=== PATIENT | male | born 1985 | race Caucasian/White ===

== ENCOUNTER 2018-09-11 10:38 | Emergency (ER) | payer MEDICAID, SELFPAY ==
[~2018-09-11] VITALS: Ht 185.4 cm; Wt 75.0 kg
[2018-09-11] MEDS ORDERED: IBUP80TA PO (10:42)
--- NOTE | 2018-09-11 11:37 | REP ---
RIGHT KNEE, FOUR VIEWS: HISTORY: Fall. There is no acute fracture or dislocation. The joint spaces are normal in appearance. IMPRESSION: There is no acute fracture or dislocation. Electronically Signed by Ti Giraldo MD 09/11/2018 11:41 A
[2018-09-11] MEDS ORDERED: NORCOTAB PO (11:48)
[2018-09-11] MEDS ORDERED: NORCO, ANEXSIA 5/325MG TABLET (HYDROcodone/ACETAMINOPHEN) PO ONE (12:00)
[2018-09-11 12:05] VITALS: BP 132/75
== END 2018-09-11 12:07 | disposition home or self-care (01) ==
LOC: M ED 10:38
DX: S89.91XA Unspecified injury of right lower leg, initial encounter (principal); W00.0XXA Fall on same level due to ice and snow, initial encounter; Y92.89 Other specified places as the place of occurrence of the external cause; Y99.0 Civilian activity done for income or pay; F17.210 Nicotine dependence, cigarettes, uncomplicated

== ENCOUNTER 2018-09-15 12:46 | Emergency (ER) | payer MEDICAID, SELFPAY ==
[~2018-09-15] VITALS: Ht 185.4 cm; Wt 75.0 kg
[~2018-09-15 12:46] MED LIST: IBUP80TA PO; NORCOTAB PO
[2018-09-15 15:46] VITALS: BP 125/70
== END 2018-09-15 15:50 | disposition home or self-care (01) ==
LOC: M ED 12:46
DX: S89.91XA Unspecified injury of right lower leg, initial encounter (principal); V83.4XXA Person injured while boarding or alighting from special industrial vehicle, initial encounter; Y92.89 Other specified places as the place of occurrence of the external cause; Y99.0 Civilian activity done for income or pay; F17.210 Nicotine dependence, cigarettes, uncomplicated

== ENCOUNTER 2018-09-20 11:32 | Emergency (ER) | payer MEDICAID ==
[~2018-09-20] VITALS: Ht 185.4 cm; Wt 77.3 kg
[2018-09-20] MEDS ORDERED: TRAM50TA2 PO (12:30)
[2018-09-20] MEDS ORDERED: traMADol 50 MG TAB PO ONE (12:30)
[2018-09-20 12:41] VITALS: BP 125/74
== END 2018-09-20 12:43 | disposition home or self-care (01) ==
LOC: M ED 11:32
DX: M25.561 Pain in right knee (principal)

== ENCOUNTER 2019-05-16 06:59 | Observation (INO) | payer MEDICAID ==
[~2019-05-16] VITALS: Ht 182.9 cm; Wt 75.2 kg
[~2019-05-16 06:59] MED LIST changes: +HYDR-3715 PO; -NORCOTAB PO; +TRAM50TA2 PO
[2019-05-16] MEDS ORDERED: ADENOSINE 6MG/2ML INJECTION (J0153) ONE (07:01)
[2019-05-16] MEDS ORDERED: ADENOSINE 6MG/2ML INJECTION (J0153) IV STA ×3 (07:20→08:24)
[2019-05-16] MEDS ORDERED: NS 1,000 ML IV ONE (07:30)
[2019-05-16 07:43] LABS: BASO # 0.1 10^3/uL (0.0-0.2); BASO % 0.6 % (0.0-1.0); EOS # 0.1 10^3/uL (0.0-0.5); EOS % 0.6 % (0.0-3.0); HEMATOCRIT 40.6 % (42.0-52.0); HEMOGLOBIN 13.6 g/dl (13.5-17.5); LYMPH # 1.2 10^3/uL (1.5-5.0); LYMPH % 11.9 % (24.0-44.0); MEAN CORPUSCULAR HEMOGLOBIN 31.3 pg (27.0-33.0); MEAN CORPUSCULAR HGB CONC 33.5 g/dl (32.0-36.5); MEAN CORPUSCULAR VOLUME 93.5 fl (80.0-96.0); MONO # 0.7 10^3/uL (0.0-0.8); NEUTROPHILS # 7.8 10^3/uL (1.5-8.5); NEUTROPHILS % 79.6 % (36.0-66.0); PLATELET COUNT, AUTOMATED 262 10^3/uL (150-450); RED BLOOD COUNT 4.34 10^6/uL (4.30-6.10); WHITE BLOOD COUNT 9.7 10^3/uL (4.0-10.0)
[2019-05-16 07:59] LABS: INR 1.09; PROTHROMBIN TIME 13.8 SECONDS (11.8-14.0)
[2019-05-16 08:08] LABS: ALBUMIN 3.8 GM/DL (3.2-5.2); ALT/SGPT 17 U/L (12-78); BILIRUBIN,DIRECT 0.1 MG/DL (0.0-0.2); BILIRUBIN,TOTAL 0.3 MG/DL (0.2-1.0); BLOOD UREA NITROGEN 17 MG/DL (7-18); C REACTIVE PROTEIN QUANTITATIV 0.77 MG/DL (0.00-0.30); CALCIUM LEVEL 8.9 MG/DL (8.5-10.1); CARBON DIOXIDE LEVEL 29 MEQ/L (21-32); CHLORIDE LEVEL 104 MEQ/L (98-107); CK-MB VALUE MASS < 1.0 NG/ML (<3.6); CPK CREATINE PHOSPHOKINASE 77 U/L (39-308); CREATININE FOR GFR 1.04 MG/DL (0.70-1.30); GLOMERULAR FILTRATION RATE > 60.0 (>60); GLUCOSE, FASTING 102 MG/DL (70-100); LIPASE 116 U/L (73-393); NT-PRO BNP 22 PG/ML (<125); POTASSIUM SERUM 4.1 MEQ/L (3.5-5.1); SODIUM LEVEL 140 MEQ/L (136-145); TOTAL PROTEIN 7.2 GM/DL (6.4-8.2); TROPONIN I < 0.02 NG/ML (< 0.10)
[2019-05-16 08:22] LABS: ERYTHROCYTE SEDIMENTATION RATE 21 mm/hr (0-15)
[2019-05-16] MEDS ORDERED: BUPRENORPHINE/NALOXONE 2-0.5MG SUBLINGUAL TABLET(SUBOXONE) SL SCH (09:00)
--- NOTE | 2019-05-16 09:17 | REP ---
CHEST, SINGLE VIEW: There is no evidence of acute infiltrate. No pleural effusion is seen. The heart is normal in size. The mediastinal silhouette is unremarkable. The visualized osseous structures are intact. IMPRESSION: No acute pulmonary disease. Electronically Signed by Karl May MD 05/16/2019 05:56 P
--- NOTE | 2019-05-16 09:48 | REP ---
Right lower extremity Duplex Doppler venous ultrasound: Real time compression and duplex Doppler interrogation of the right lower extremity deep venous system is performed. The right common femoral, superficial femoral and popliteal veins are fully compressible with transducer pressure and demonstrate normal spontaneous and phasic flow, without evidence of deep venous thrombosis. Impression: No evidence of deep venous thrombosis of the right lower extremity femoral popliteal venous system. Electronically Signed by Karl May MD 05/16/2019 09:40 A
[2019-05-16] MEDS ORDERED: VANCOMYCIN HCL 1,000 MG, VIAL MATE ADAPTER 1 EACH in D5W 250 ML IV ONE (12:00)
[2019-05-16] MEDS ORDERED: MAALOX 30 ML SUSP *UDC PO PRN (12:30)
[2019-05-16] MEDS ORDERED: ACETAMINOPHEN TAB 650MG DOSE (2X325MG) PO PRN (12:30)
[2019-05-16] MEDS ORDERED: SUBO2MIS SL (12:52)
[2019-05-16] MEDS ORDERED: FLUC200T2 PO (12:52)
[2019-05-16] MEDS ORDERED: ADDE20TA PO (12:52)
--- NOTE | 2019-05-16 13:36 | ECGEPIP ---
[facility] - ED Test Date: 2019-05-16 Pat Name: JEFF PAEZ Department: Room: - Gender: Male Joint Terminal Attack Controller: PMO : 1985 Requested By: Yareli Lloyd Order Number: [id number] Reading MD: Yareli Lloyd Measurements Intervals [place] Rate: 103 P: CO: 0 QRS: 72 QRSD: 101 T: 65 QT: 339 QTc: 445 Interpretive Statements SINUS TACHYCARDIA INCOMPLETE RIGHT BUNDLE BRANCH BLOCK ABNORMAL RHYTHM ECG NO PRIOR Electronically Signed on 05-16-2019 13:36:07 EDT by Yareli Lloyd
--- NOTE | 2019-05-16 13:43 | PHACANCOPD ---
PHARMACY VANCOMYCIN DOSING Pt Demographics Demographics Patient Age:33 , Weight:75.000 , Gender: male Adjusted Body Weight Date: 05/16/19, Adjusted Body Weight: Kg Events Past 24 Hours Events Past 24 Hours: NO: Dialysis, Diuretic Therapy, Change in CrCl, Fever, Elevation in WBC, Pending Diagnostics, Pending Procedures, Other Vancomycin Vancomycin indication: SKIN AND SOFT TISSUE INFECTION Vancomycin Target Ranges: 10-20 mcg/ml Vancomycin Load Y/N: Yes Load Dose Date Time Vancomycin Load Dose: 1500MG Date: 05/16/19 Time: 1300 Vancomycin Dose Date: 05/16/19. Current Vancomycin Dose: [1 GRAM EVERY 8 HOURS] Intermittent Dosing?: No Labs Labs Vital Signs Label Value Date Time Blood Pressure Assessment 95/62 (73) 05/16/19 0715 Source Automatic Cuff (NIBP) Blood Pressure Assessment 109/78 (88) 05/16/19 0731 Source Automatic Cuff (NIBP) Blood Pressure Assessment 120/79 (93) 05/16/19 0745 Source Automatic Cuff (NIBP) Blood Pressure Assessment 109/67 (81) 05/16/19 0801 Source Automatic Cuff (NIBP) Blood Pressure Assessment 106/67 (80) 05/16/19 0803 Source Automatic Cuff (NIBP) Blood Pressure Assessment 112/70 (84) 05/16/19 0806 Source Automatic Cuff (NIBP) Blood Pressure Assessment 109/71 (84) 05/16/19 0809 Source Automatic Cuff (NIBP) Blood Pressure Assessment 70/47 (55) 05/16/19 0812 Source Automatic Cuff (NIBP) Blood Pressure Assessment 103/58 (73) 05/16/19 0814 Source Automatic Cuff (NIBP) Blood Pressure Assessment 110/71 (84) 05/16/19 1200 Source Automatic Cuff (NIBP) Blood Pressure Assessment 105/62 (76) 05/16/19 1230 Source Automatic Cuff (NIBP) Item Value Date Time White Blood Count 9.7 10^3/uL 05/16/19 0727 Erythrocyte Sedimentation Rate 21 mm/hr H 05/16/19 0727 Creatinine 1.04 MG/DL 05/16/19 0727 Glomerular Filtration Rate > 60.0 05/16/19 0727 C-Reactive Protein, Quantitative 0.77 MG/DL H 05/16/19 0727 Micro Microbiology 05/16/19 Blood Culture, Received Pending 05/16/19 Blood Culture, Received Pending Creatinine Clearance Date:05/16/19. Creatinine Clearance: [108.8 mL/MIN]. Assessment and Plan Maintaining Current Dose?: Yes Reason for dose change: No Dose Change Pharmacist Note Pharmacist Note Date: 05/16/19. Pharmacist note: Patient presented to [facility] due to leg pain. Patient was initiated on vancomycin for skin and soft tissue infection. 1 gram of vancomycin was given in the emergency department with an additional 500mg orders to complete a 1500mg loading dose. A maintenance dosing of 1 gram of vancomycin every 8 hours was ordered, with a trough to determine steady state scheduled for 1300 on 05/17/19. We will continue to monitor and make adjustments as needed. JANETH DUNCAN [facility] May 16, 2019 13:43
[2019-05-16] MEDS ORDERED: VANCOMYCIN HCL 500 MG in D5W MINI-BAG PLUS 100 ML IV ONE (14:00)
[2019-05-16] MEDS ORDERED: ADDERALL 5 MG TAB PO SCH (14:00)
[2019-05-16 14:59] VITALS: BP 125/76
[2019-05-16] MEDS ORDERED: BACT800T5 PO (16:43)
[2019-05-16] MEDS ORDERED: DOXY-350 PO (16:43)
--- NOTE | 2019-05-16 18:57 | HPE ---
DATE OF ADMISSION: 05/16/2019 CHIEF COMPLAINT: Right lower extremity redness and pain. HISTORY OF PRESENT ILLNESS: Mr. 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 He has not used in multiple years. He is currently on Suboxone therapy. Also, has a history of supraventricular tachycardia (SVT) and attention deficit hyperactive disorder (ADHD). The patient was in his usual state of health up until 2 weeks ago when he noticed increased redness and pain involving his right lateral lower extremity at the site of one of his previous leishmaniasis lesion. He was seen in the outpatient and was placed on oral Keflex, as well as fluconazole. However, over the course of the two weeks and despite completing therapy, the patient's symptoms have not improved. He has developed increasing redness and pain. Therefore he sought medical attention today at the [facility] in [place], [place]. On arrival to the emergency department (ED), the patient was noted to be in supraventricular tachycardia (SVT). Apparently, he does have a history of supraventricular tachycardia (SVT) in the past. He was treated with three rounds of adenosine to no avail and was subsequently cardioverted at 200 joules times one and is currently in normal sinus rhythm. The patient was found to be afebrile without any evidence of leukocytosis or sepsis. He was treated with IV vancomycin and recommended for admission to the hospitalist service. A right lower extremity venous Duplex ultrasound did not show any evidence of acute deep vein thrombosis (DVT). ALLERGIES: The patient's allergies are no known drug allergies. His current home medications are Suboxone 2 mg/0.5 mg sublingual film, one strip daily. He is on Adderall 200 mg twice a day. He had been taking the fluconazole 200 mg by mouth daily and has been taking that since 04/21 and he had completed a course of Keflex. PAST MEDICAL HISTORY: Notable for leishmaniasis, history of supraventricular tachycardia (SVT), history of chronic opioid addiction previously used heroin, has not used in many years. He has a history of attention deficit hyperactive disorder (ADHD). PAST SURGICAL HISTORY: Nil. SOCIAL HISTORY: He is . He lives alone. He quit smoking and does not use any alcohol. He denies any illicit drug use. His surrogate decision maker would be his mom Mora. He is a full code. FAMILY HISTORY: Notable for diabetes, hypertension. The patient otherwise is not aware of any other family history. REVIEW OF SYSTEMS: 12 systems were reviewed. The patient otherwise negative, except what pertains to the history of present illness. He has not had any fevers, chills, rigors. He denies having any drainage from that area. Denies any recent trauma. Denies any recent bug bites. No recent sick contacts with similar symptoms or any recent travel. PHYSICAL EXAMINATION: On examination, the patient's pulse is 90 and regular. At this time, respirations are 18, oxygen saturation is 100% on room air. Temperature is 98.7, pulse was 190 on admission, respirations were 18, blood pressure is 116/76, oxygen 99% on room air. General: Mr. Carlson is a gentleman who appears to be in no acute distress. He is resting comfortably. He is slightly sleepy from receiving medications for the cardioversion. His head is otherwise atraumatic, normocephalic. Tympanic membranes are visualized bilaterally. Oropharynx is clear without erythema or thrush. Oral mucosa is moist. His nares are patent bilaterally without any visible discharge. His neck is supple. No nuchal rigidity. He has no palpable lymphadenopathy. Trachea is midline. No thyroid gland tenderness or enlargement is noted. Lung sounds are appreciated bilaterally. He has symmetric chest wall rise with inspiration and expiration. No audible rales, wheeze or rhonchi. Heart: S1, S2. He does not have any audible murmurs, rubs or gallops. He is currently in a normal sinus rhythm. Telemetry is reviewed. The patient is in a normal sinus rhythm with a heart rate in the 80s. His abdomen is scaphoid in appearance, nontender, nondistended. He has active bowel sounds. No palpable organomegaly. His extremities are without any significant cyanosis or clubbing. He has some mild edema, which I consider trace on the right lower extremity. He has a healing eschar from his previous leishmaniasis exposure. Surrounding this he has erythema, which does fe. He has no fluctuance. There is no subcutaneous emphysema. No pustular discharge is noted on his chronic ulcer. Neurologic exam: Cranial nerves II/XII appear to be grossly intact. The patient is sleepy, but arousable and able to answer questions and participate in the exam. Gait is not tested given his level of lethargy from medications. Psychiatric: The patient appears to be in appropriate mood without any noticeable depression. He is not exhibiting any suicidal or homicidal ideation. PERTINENT LABS ARE THE FOLLOWING: Right lower extremity venous Duplex ultrasound did not show any acute deep vein thrombosis (DVT). Chest x-ray one view shows no acute pulmonary disease. White count is 9.7, hemoglobin is 13.6, hematocrit is 40.6, platelet counts are 262,000. Sodium is 140, potassium is 4.1, chloride 104, bicarbonate is 29, BUN is 17, creatinine is 1, glucose is 102, calcium is 8.9, total bilirubin is 0.3, direct bilirubin is 0.1, AST is 18, ALT is 17, alkaline phosphatase 79. CPK is 77, troponin is less than 0.02. C-reactive protein (CRP) was 0.77, NT-pro BNP is 22, albumin is 3.8, lipase is 160, thyroid simulating hormone (TSH) was 1, free T4 was 1.3. IMPRESSION: 1. Right lower extremity cellulitis. Failed outpatient treatment. 2. Supraventricular tachycardia (SVT), status post cardioversion with 200 joules in the emergency room department. Currently in normal sinus rhythm 3. Chronic opioid addiction. 4. Attention deficit hyperactive disorder. 5. History of leishmaniasis. PLAN: The patient will be admitted to an observation status for now. He has received IV vancomycin in the emergency room department, will continue with this. I will ask pharmacy to dose him. In addition, I am going to put him on IV cefazolin 2 grams IV every 8 hours. We will check the patient for possible methicillin-resistant Staphylococcus aureus (MRSA) screen. Anticipate he will need less than 24 hour hospitalization. The patient's thyroid simulating hormone (TSH) levels were normal. Will monitor him on telemetry to see if his supraventricular tachycardia (SVT) occurs. If so, then we can consider adding a calcium channel homero or beta homero. The patient will be continued on his Suboxone for his chronic opioid addiction treatment. He will be continued on Adderall. We will stop his fluconazole at this time. The patient will be a full code. The patient does not warrant deep vein thrombosis (DVT) prophylaxis as he is in the hospital for less than 24 hours.
[2019-05-16] MEDS ORDERED: VANCOMYCIN HCL 1,000 MG, VIAL MATE ADAPTER 1 EACH in D5W 250 ML IV SCH (22:00)
--- NOTE | 2019-05-17 07:01 | REP ---
RIGHT LOWER LEG SOFT-TISSUE ULTRASOUND: Real-time sonographic evaluation of right lower leg soft-tissues are performed in an area of redness and swelling. There is soft-tissue edema at that location. No fluid collection or abscess is seen. IMPRESSION: Soft-tissue edema with no abscess collection at the site of the redness and swelling in the right posterior distal calf. Electronically Signed by Karl May MD 05/17/2019 09:10 A
--- NOTE | 2019-05-20 18:28 | DSES ---
DATE OF ADMISSION: 05/16/2019 DATE OF DISCHARGE: 05/16/2019 DISCHARGE DIAGNOSES: 1. Patient left against medical advice 2. Right lower extremity cellulitis. 3. Supraventricular tachycardia (SVT) status post cardioversion with 200 joules in the emergency department. 4. Chronic opioid addiction, on Suboxone. 5. Attention-deficit hyperactive disorder. PROCEDURES PERFORMED DURING THIS HOSPITALIZATION: Cardioversion with 200 joules to a normal sinus rhythm. CONSULTANTS ON THE CASE: None. DISPOSITION: Patient left against medical advice. DISCHARGE INSTRUCTIONS: Could not be given as the patient left against medical advice, although I did advise him to followup with his primary care provider in the next 1 week. CONDITION AT DISCHARGE: Left against medical advice. IMAGING STUDIES OBTAINED DURING THE PATIENT'S HOSPITAL STAY: Chest x-ray, one view, shows no acute pulmonary disease. Right lower extremity venous duplex ultrasound showed no evidence of acute deep vein thrombosis (DVT). RELEVANT LABS: White count was 9.7, hemoglobin was 13.6, hematocrit is 40, platelet count was 262,000. Sodium 140, potassium 4.1, chloride 104, bicarbonate is 29, BUN is 17, creatinine is 1, glucose 102, calcium is 8.9, CRP was 0.77, TSH was 1, free T4 was 1.3, AST was 18, ALT was 17, alkaline phosphatase was 79, CPK was 77, total bilirubin was 0.3. DISCHARGE MEDICATIONS: I did give the patient a prescription for doxycycline 100 mg twice a day and Bactrim DS one tablet twice a day, both for 7 days. HOSPITAL COURSE: Mr. Carlson is a pleasant 33-year-old gentleman who has a history of Leishmaniasis in the past. He has a history of chronic opioid use and is currently on Suboxone therapy. He had presented to the hospital with right lower extremity erythema for the past several weeks, which had failed outpatient therapy. On arrival to the emergency department (ED), he was noted to be tachycardic with SVT. He was treated with adenosine, which failed to control his tachyarrhythmia. He subsequently underwent cardioversion 200 joules with conversion to a normal sinus rhythm. He was treated with IV antibiotics, vancomycin and admitted to the hospitalist service. Upon arriving to the floor, the patient decided that he was going to leave against medical advice. The nurse contacted me, and I went and saw him. The patient was competent to make decisions. His reason for leaving was that he was moving to the [facility], and if he did not leave, he would lose all his possessions. I, again, told the patient I would prescribe him antibiotics that he could take, and he will need to followup with his primary care provider (PCP). Patient was agreeable to this and left against medical advice. No physical exam was conducted as the patient left against medical advice. I had already seen him 2 hours earlier for his admission history and physical.
== END 2019-05-16 17:41 | disposition left against medical advice (07) ==
LOC: M ED 06:59 → EDBD 06:59 → M ED INP 07:00 → M MSPAV 15:00
PROVIDERS: ADMIT Internal Medicine; ATTEND Internal Medicine
DX: L03.115 Cellulitis of right lower limb (principal); I47.1 Supraventricular tachycardia; Z53.21 Procedure and treatment not carried out due to patient leaving prior to being seen by health care provider; F11.20 Opioid dependence, uncomplicated; F90.9 Attention-deficit hyperactivity disorder, unspecified type; Z79.899 Other long term (current) drug therapy; Z87.891 Personal history of nicotine dependence; Z86.19 Personal history of other infectious and parasitic diseases
CPT/HCPCS: 36415; 71045; 76882; 80048; 80076; 82550; 82553; 83690; 83880; 84439; 84443; 85025; 85610; 85652; 86140; 87040; 92960; 93005; 93041; 93971; 94760; 96361; 96365; 96366; 96375; 96376; 99285; J0153; J0690; J3370